=== PATIENT | female | born 1950 | race Hispanic/Latino ===

== ENCOUNTER → 2018-07-12 | Day surgery (SDC) | payer MEDICARE ==
[2018-07-05 09:26] LABS: BASOPHILS % 0.5 % (0.0-1.0); EOSINOPHILS # (AUTO) 0.3 (0.0-0.4); EOSINOPHILS % 4.4 % (0.0-6.0); HEMOGLOBIN 11.2 g/dL (12.0-16.0); LYMPHOCYTES # (AUTO) 1.5 (1.0-3.2); LYMPHOCYTES % 24.9 % (18.0-39.1); MEAN CORPUSCULAR HEMOGLOBIN 28.2 pg (28-32); MEAN CORPUSCULAR VOLUME 88.2 fL (81-99); MONOCYTES # (AUTO) 0.5 (0.2-0.8); MONOCYTES % 7.9 % (4.4-11.3); NEUTROPHILS # (AUTO) 3.7 (2.1-6.9); NEUTROPHILS % 62.1 % (38.7-80.0); PLATELET COUNT 279 x10e3/uL (140-360); RED BLOOD COUNT 3.97 x10e6/uL (3.6-5.1); RED CELL DISTRIBUTION WIDTH 13.4 % (11.7-14.4)
[2018-07-05 09:43] LABS: ANION GAP 13.2 mmol/L (8-16); CALCIUM 9.6 mg/dL (8.4-10.2); CREATININE, SERUM 1.17 mg/dL (0.57-1.11); POTASSIUM 4.2 mmol/L (3.5-5.1)
[2018-07-05 09:49] LABS: BILIRUBIN,URINE NEGATIVE (NEGATIVE); CLARITY,URINE CLEAR (CLEAR); COLOR,URINE YELLOW (YELLOW); KETONES,URINE NEGATIVE (NEGATIVE); LEUKOCYTE ESTERASE ,URINE TRACE (NEGATIVE); NITRITE,URINE NEGATIVE (NEGATIVE); PROTEIN,URINE DIPSTICK NEGATIVE (NEGATIVE); URINE UROBILINOGEN 0.2 mg/dL (0.2 - 1)
--- NOTE | 2018-07-05 10:24 | Diagnostic Imaging Report ---
PROCEDURE: X-RAY CHEST, TWO VIEWS COMPARISON: None. INDICATIONS: PREOPERATIVE CHEST XRAY FOR RIGHT FOOT SURGERY FINDINGS: LUNGS: No consolidations or edema. PLEURA: No effusions or pneumothorax. HEART & MEDIASTINUM: The heart is within normal size-limits. Large air-containing hiatal hernia. Tortuous thoracic aorta. BONES & SOFT TISSUES: No acute findings. Degenerative changes of the right shoulder and spine. Calcified lymph node in the right axilla. CONCLUSION: No acute thoracic abnormality. Scotty Vega D.O. Dictated by: Scotty Vega D.O. on 07/05/2018 at 10:34 Electronically approved by: Scotty Vega D.O. on 07/05/2018 at 10:34
[2018-07-05 10:26] LABS: INR 0.91; PROTHROMBIN TIME 13.1 seconds (11.9-14.5)
[2018-07-05 10:27] LABS: PARTIAL THROMBOPLASTIN TIME 30.9 seconds (23.8-35.5)
[~2018-07-12] MED LIST: ATORVASTATIN PO; BUPIVACAINE HCL 0.5% INJ 30 ML VIAL INJ ONE; CEFAZOLIN SOD 2 GM/D5W 50ML 50 ML IV ONE; DEXAMETHASONE SOD PHOS INJ 4 MG/ML VIAL ONE; EPHEDRINE SULFATE INJ 50 MG/10 ML SYR ONE; FENTANYL CITRATE/PF 100MCG/2 ML INJ ONE; KETOROLAC TROMETHAMINE 30 MG/ML VIAL ONE; LIDOCAINE HCL 1% LOCAL INJ 20 ML VIAL ONE; LISINOPRIL PO; ONDANSETRON HCL INJ 2 MG/ML VIAL ONE; PROPOFOL IV EMULSION 10 MG/ML 20 ML VIAL ONE; SEVOFLURANE INHAL SOLN 250 ML PEN BTL ONE
--- OUTSIDE RECORDS SUMMARY | 2018-07-12 11:53 | XMS REPORT ---
Author [facility] Address Unknown Phone Unavailable Care Team Providers Care Needle Bar Molder Name Role Phone Adarsh GOMEZ Unavailable Unavailable Problems This patient has no known problems. Allergies, Adverse Reactions, Alerts This patient has no known allergies or adverse reactions. Medications This patient has no known medications. Results Test Description Test Time Test Comments Text Results Atomic Results Result Comments CHEST 2 VIEWS 2018-07-05 10:34:00 [place] [address] Patient Name: KEERTHI RINCON MR #: [id number] : 1950 Age/Sex: 68/F Req #: [id number] Adm Physician: Ordered by: FARHAD GOMEZ DPM Report #: [id number] Location: OR Room/Bed: Procedure: [id number] DX/CHEST 2 VIEWS Exam Date: 07/05/18 Exam Time: 0920 REPORT STATUS: Signed PROCEDURE: X-RAY CHEST, TWO VIEWS COMPARISON: None. INDIC ATIONS: PREOPERATIVE CHEST XRAY FOR RIGHT FOOT SURGERY FINDINGS: LUNGS: No consolidations or edema. PLEURA: No effusions or pneumothorax. HEART MEDIASTINUM: The heart is within normal size- limits. Large air-containing hiatal hernia. Tortuous thoracic aorta. BONES SOFT TISSUES: No acute findings. Degenerative changes of the right shoulder and spine. Calcified lymph node in the right axilla. CONCLUSION: No acute thoracic abnormality. Jacinta Vega D.O. Dictated by: Jacinta Vega D.O. on 07/05/2018 at 10:34 E lectronically approved by: Jacinta Vega D.O. on 07/05/2018 at 10:34 Dictated By: JACINTA VEGA DO 1034 Transcribed By: RAYNA on 07/05/18 1034 COPY TO: FARHAD GOMEZ DPM
[2018-07-12 18:15] VITALS: BP 112/67
--- NOTE | 2018-07-12 18:59 | Diagnostic Imaging Report ---
RIGHT FOOT X-RAY - 3 VIEWS HISTORY: ^S/P SURGERY ^[id number] ^1805 ^PACU 3 COMPARISON: None available. FINDINGS: Bones: Surgical pin traversing the distal right second digit without loosening. There is good alignment. Osseous alignment is within normal limits. Joints: Advanced degenerative changes of the first metatarsophalangeal joint. Mild degenerative changes of the remaining interphalangeal joints. Soft tissues: Soft tissue swelling surrounding the foot. IMPRESSION: Interval repair of the second right digit. The surgical pin is intact without loosening. Signed by: Dr. Pratibha Mcknight M.D. on 07/12/2018 6:56 PM
--- NOTE | 2018-07-13 08:54 | Operative Report ---
DATE OF PROCEDURE: July 12, 2018 PREOPERATIVE DIAGNOSES 1. Hallux limitus/rigidities to the right first metatarsophalangeal joint. 2. Overlapping hammer toe, 2nd toe, right foot. 3. Contracture of the right 2nd toe, right foot at the metatarsophalangeal joint. 4. Hammer toe right 5th toe. POSTOPERATIVE DIAGNOSES 1. Hallux limitus/rigidities to the right first metatarsophalangeal joint. 2. Overlapping hammer toe, 2nd toe, right foot. 3. Contracture of the right 2nd toe, right foot at the metatarsophalangeal joint. 4. Hammer toe right 5th toe. PROCEDURES 1. Cheilectomy of the right first metatarsophalangeal joint. 2. Hammer toe correction of the 2nd toe, right foot with 0.045 K-wire stabilization (proximal interphalangeal joint resection arthroplasty of the 2nd toe, right foot with 0.045 K-wire stabilization). 3. Tenotomy and capsulotomy of the right 2nd metatarsophalangeal joint. 4. Hammer toe correction to the 5th toe of the right foot (a derotational proximal interphalangeal joint resection of the positive 5th toe of the right foot). HEAD SUGAR REPROCESS OPERATOR: None. ANESTHESIA: General with a total of 30 mL of 1:1 mix of 1% lidocaine plain and 0.5% of Marcaine plain. PATHOLOGY: None. ESTIMATED BLOOD LOSS: Less the 1 mL. COMPLICATIONS: None. GRAFTS OR IMPLANTS: One 0.045 K-wire. INDICATIONS FOR PROCEDURE: The patient is a 68-year-old female who complains of a painful bump on the dorsal aspect of the right 1st metatarsophalangeal joint. The patient denies any pain within the joint itself. She just complains of the bump that is proliferating over that joint. At this time again denies pain with movement of the toe, more in the joint itself, just a bump on the top. Also, has pain of the right 2nd toe, which is currently overlapping on the right great toe. It is causing her severe discomfort and pain, and has a contracture with a painful corn on the dorsal aspect of the 2nd toe as well. The patient also has a painful hammer toe of the right 5th toe as well. Both have been there for quite some time, and at this time this is creating severe pain with shoe gear and ambulation to the point where she is not able to walk comfortably. Therefore, this requires surgical correction of these problems including the cheilectomy and the hammer toe correction with K-wire stabilization at this time and capsulotomy of the 2nd toe, right foot, and a hammer toe correction of the 5th toe of the right foot. At this point, I explained to the patient that the procedure for the overlapping 2nd toe has a tendency to have a high recurrence as well as a recurrence of all of these options, and I had recommended an implant arthroplasty to the 1st MPJ, but she had indicated that she was not painful within the joint and just wanted the bump removed. I told her at some point it will become painful and will need something more aggressively done. The patient understood and at this time all the risks and complications were explained to the patient including infection, pain, swelling, numbness, bleeding, delayed healing, nonhealing, neuritis, recurrence of stiffness and possibly further surgery. At this time, there were no guarantees implied or given. Therefore, the above stated procedures were performed. NARRATIVE OF PROCEDURES: Preoperatively the patient was identified as Ángela Valdivia and the right foot was marked. At 30 minutes prior to the surgery, the patient was administered 2 grams of Ancef. She was then taken to the OR and placed on the OR table in a supine position. After a successful general anesthetic, a right ankle tourniquet was applied and an appropriate time out was performed with identification of the patient and the procedures. The right foot was infiltrated with a total of 30 mL of a 1:1 mix of 1% lidocaine plain and 0.5% of Marcaine plain. The right foot was then prepped and draped in the usual sterile manner. At this time, the mini C-arm was utilized to evaluate at this point. The right foot was now elevated and Esmarch was utilized to exsanguinate the blood and tourniquet was now inflated to 250 mmHg. Attention was now directed to the dorsal aspect of the right 1st metatarsophalangeal joint where there currently exists a very overlapping right 2nd toe over to the toe and a large dorsal bump on the dorsal right 1st metatarsophalangeal joint. A dorsal linear incision was made medially and parallel to the extensor hallucis longus tendon. Utilizing a #15 blade, the incision was now deepened down to the level of the subcutaneous tissue being careful to identify and retract all lateral neurovascular structures and to cauterize all vessels as needed. At this time, an inverted L capsulotomy was performed to the point where the head of the 1st metatarsal as well as to the base of the 1st metatarsal was then brought onto the operative field. There was a large vertiginous bone, both from the base of the proximal phalanx as well as to the head of the 1st metatarsal that is protruding, and at this point there was a loose fragment of bone also within the joint. After removing all the periosteal tissue from the bone with good exposures, the bone was apparent at this time, and utilizing a sagittal bone saw the prominent bone was now resected, and it was passed off the operative field. The medial eminence was resected as well on the head of the 1st metatarsal. At this point, there were large amounts of bony prominence into the base of the proximal phalanx, and which utilizing a Rongeur the bony prominence was resected, and this was also removed. The sagittal saw was utilized at this time to resect the prominent bone to nice flat bone area where the bony protrusion was noted. After resection of all the bone, the bones were now smoothed to smooth contour utilizing a reciprocating rasp as well as a bur and hand held rasp. The mini C-arm was utilized to evaluate at this time, and at this time the deformity that was noted previously was no longer present. The bony prominence was gone at this point, and, therefore, the deformity has been corrected. The area was then irrigated with copious amounts of normal saline, and after complete irrigation the capsule was then reapproximated utilizing 3-0 Vicryl in a simple interrupted stitch, and for deep closure 4-0 Vicryl was utilized in a simple interrupted stitch, and for skin closure 4-0 nylon was utilized in a simple interrupted stitch. Attention was now directed to the dorsal aspect of the right 2nd toe in which a dorsal linear incision encompassing the right 2nd toe at the metatarsophalangeal joint and a double semielliptical incision was made overlying the proximal phalangeal joint. Utilizing a #15 blade, the incision was now deepened down to the level of the subcutaneous tissue being careful to identify and retract all vital structures, and at this time deliverance of the skin overlapping proximal metatarsophalangeal joint was resected and passed off the operative field. A separate incision overlying the metatarsophalangeal joint was made. At this point, the incision was now deepened down to the lower subcutaneous tissue. The vessels were cauterized as needed. A transverse tenotomy capsulotomy was performed to the point where the toe now was sitting in a more rectus position, and the metatarsal head was elevated utilizing a McGlamry elevator. At this time, attention was now directed to the proximal phalangeal joint which the transverse tenotomy capsulotomy was performed over the proximal phalangeal joint to the point where the collateral ligaments were resected proximally and laterally. The extensor tendon was now reflected proximally, and the head of proximal phalanx was now apparent. Utilizing an oscillating bone saw, the head of the proximal phalanx was resected and was passed off the operative field. At this point, the bone was now smoothed to smooth contour with a bur. The mini C-arm was used to evaluate it at this time, and the contracture was no longer apparent and the toe was sitting in a much more rectus position. The area was then irrigated with copious amounts of normal saline. After complete irrigation, a 0.045 K-wire was placed through the middle phalanx extending it into the distal phalanx, and retrograding it back into the proximal phalanx and into the head of the 1st metatarsal. The mini C-arm was used to evaluate it at this time and the position of the K-wire was noted to be excellent. The K-wire is now bent and cut, and at this point the tendon was now reapproximated utilizing 4-0 Vicryl in a simple interrupted stitch, and for deep closure again 4-0 Vicryl was utilized in a simple interrupted stitch and for skin closure 4-0 nylon was used utilized in a simple interrupted stitch. Attention was now directed to the right 5th toe in which a double semielliptical incision was made encompassing the right 5th toe proximal phalangeal joint from distal to medial to proximal lateral direction. The incisions were now deepened down to the subcutaneous tissue being careful to identify and retract all vital neurovascular structures and to cauterize all vessels as needed. At this time, the ellipse of the skin was now removed, and it was passed off the operative field. A transverse tenotomy capsulotomy was performed to the point where the head of the proximal phalanx was aligned to the operating field, and at this time the extensor tendon was reflected both proximally. Utilizing an oscillating bone saw, the head of the proximal phalanx was resected, and the bone of the head was passed off the operative field. At this time, bone was smoothed to smooth contour. The mini C-arm was utilized to evaluate at this time and the resection was noted to be excellent at this point. The area was then irrigated with copious amounts of normal saline. After complete irrigation, the toe was now derotated and the tendon was then reapproximated utilizing 4-0 Vicryl in simple interrupted stitch. At this point, the tourniquet was released. Capillary refill was noted to all digits of 1 through 5 of the right foot, and then I proceeded with reapproximating the skin over the 5th toe with 4-0 nylon in a simple interrupted stitch. At this time, after achieving good capillary refill to all the digits, I then applied a dry, sterile compressive dressing utilizing Betadine-soaked Adaptic and gauze overlying the toes and the foot along with 4 x 4's, soft roll Miguel Angel, dry sterile Kerlix and an Wily bandage. Again, post removal of the tourniquet, capillary refill is noted to all digits 1-5 of the right foot. The patient did tolerate the procedure well, and left the OR to the recovery room with vital signs stable and neurovascular status back to preoperative condition. Job#: [id number] GH KORINA
== END | disposition home or self-care (01) ==
LOC: OR 11:51
PROVIDERS: ATTEND Podiatrist
DX: M20.21 Hallux rigidus, right foot (principal); M20.5X1 Other deformities of toe(s) (acquired), right foot; M20.41 Other hammer toe(s) (acquired), right foot; M24.574 Contracture, right foot; M24.074 Loose body in right toe joint(s); I10 Essential (primary) hypertension; E78.5 Hyperlipidemia, unspecified; Z01.810 Encounter for preprocedural cardiovascular examination; Z01.812 Encounter for preprocedural laboratory examination; Z01.818 Encounter for other preprocedural examination
CPT/HCPCS: 28270; 28285 ×2; 28289; 36415; 71046; 73630; 80048; 81003; 85025; 85610; 85730; 93005; J0690; J1100; J1885; J2001; J2405; J2704; C1713

== ENCOUNTER → 2019-03-07 | Day surgery (SDC) | payer MEDICARE ==
[2019-02-27 16:56] LABS: BILIRUBIN,URINE NEGATIVE (NEGATIVE); CLARITY,URINE CLEAR (CLEAR); COLOR,URINE YELLOW (YELLOW); KETONES,URINE NEGATIVE (NEGATIVE); LEUKOCYTE ESTERASE ,URINE SMALL (NEGATIVE); NITRITE,URINE NEGATIVE (NEGATIVE); PROTEIN,URINE DIPSTICK NEGATIVE (NEGATIVE); URINE UROBILINOGEN 0.2 mg/dL (0.2 - 1)
[2019-02-27 16:58] LABS: BASOPHILS % 0.3 % (0.0-1.0); EOSINOPHILS # (AUTO) 0.3 (0.0-0.4); EOSINOPHILS % 4.8 % (0.0-6.0); HEMATOCRIT 34.1 % (34.2-44.1); LYMPHOCYTES # (AUTO) 1.3 (1.0-3.2); LYMPHOCYTES % 21.4 % (18.0-39.1); MEAN CORPUSCULAR HEMOGLOBIN 28.2 pg (28-32); MEAN CORPUSCULAR HGB CONC 32.3 g/dL (31-35); MEAN CORPUSCULAR VOLUME 87.4 fL (81-99); MONOCYTES # (AUTO) 0.7 (0.2-0.8); MONOCYTES % 10.4 % (4.4-11.3); NEUTROPHILS # (AUTO) 3.9 (2.1-6.9); NEUTROPHILS % 62.9 % (38.7-80.0); PLATELET COUNT 317 x10e3/uL (140-360); RED CELL DISTRIBUTION WIDTH 22.3 % (11.7-14.4)
[2019-02-27 17:05] LABS: INR 0.91; PROTHROMBIN TIME 12.7 seconds (11.9-14.5)
[2019-02-27 17:06] LABS: PARTIAL THROMBOPLASTIN TIME 31.3 seconds (23.8-35.5)
[2019-02-27 17:10] LABS: ANION GAP 13.5 mmol/L (8-16); CALCIUM 9.4 mg/dL (8.4-10.2); CREATININE, SERUM 1.16 mg/dL (0.57-1.11); POTASSIUM 4.5 mmol/L (3.5-5.1)
--- NOTE | 2019-02-27 17:19 | Diagnostic Imaging Report ---
EXAMINATION: CHEST 2 VIEWS INDICATION: Pre-operative COMPARISON: None FINDINGS: LINES/TUBES:None LUNGS:The lungs are well-inflated. No focal consolidation or pulmonary edema. PLEURA:No pleural effusion or pneumothorax. MEDIASTINUM:The cardiomediastinal silhouette appears normal in size and shape. Right hemidiaphragmatic eventration. BONES/SOFT TISSUES:No acute osseous injury. Degenerative changes of the visualized spine. ABDOMEN:Large hiatal hernia with an air-fluid level. No free air under the diaphragm. IMPRESSION: No focal pneumonia or pulmonary edema. Large hiatal hernia. Signed by: Ernie Haro MD on 02/27/2019 5:16 PM
[2019-02-27 18:39] LABS: ANISOCYTOSIS MODERATE; PLATELET ESTIMATE ADEQUATE; PLATELET MORPHOLOGY COMMENT NORMAL; RBC MORPHOLOGY COMMENT NORMAL
[~2019-03-07] MED LIST changes: +ASPIRIN81 MG PO; +CEFAZOLIN SOD 1 GM/NS 50ML 100 ML IV ONE; -CEFAZOLIN SOD 2 GM/D5W 50ML 50 ML IV ONE; -EPHEDRINE SULFATE INJ 50 MG/10 ML SYR ONE; -KETOROLAC TROMETHAMINE 30 MG/ML VIAL ONE; +LIDOCAINE HCL 2% LOCAL INJ 5 ML SDV VIAL INJ ONE; +LISINOPRIL-HCT1 EACH PO; +MIDAZOLAM HCL 2 MG/2 ML VIAL ONE; -ONDANSETRON HCL INJ 2 MG/ML VIAL ONE; +ONDANSETRON HCL INJ 2MG/ML 2ML 2 MG/ML VIAL ONE
[2019-03-07 18:05] VITALS: BP 144/86
--- NOTE | 2019-03-07 18:24 | Diagnostic Imaging Report ---
FOOT LEFT AP LAT - 2 views HISTORY: Pain COMPARISON: 07/12/2018 FINDINGS: Bones: No acute displaced fracture. Osseous alignment is within normal limits. Unchanged pin fixation of the second digit through the phalanges and proximal second metatarsal. Plantar calcaneal enthesophyte. Joints: No malalignment. Degenerative changes of the first metatarsophalangeal joint. Soft tissues: Soft tissue swelling and emphysema of the dorsal forefoot. IMPRESSION: No acute osseous abnormality. Unchanged second toe fixating pin. Soft tissue swelling and emphysema of the dorsal forefoot, slightly increased from prior exam. Signed by: Dr. Ulises Miranda MD on 03/07/2019 6:21 PM
--- NOTE | 2019-03-08 01:22 | Operative Report ---
DATE OF PROCEDURE: 03/07/2019 SURGEON: Misti Bush DPM LOAN MANAGER: None. PREOPERATIVE DIAGNOSES: 1. Hallux limitus rigidus to left first metatarsophalangeal joint. 2. Overlapping hammertoe, second toe, left foot. 3. Contracture of the left second metatarsophalangeal joint. POSTOPERATIVE DIAGNOSES: 1. Hallux limitus rigidus to left first metatarsophalangeal joint. 2. Overlapping hammertoe, second toe, left foot. 3. Contracture of the left second metatarsophalangeal joint. PROCEDURES PERFORMED: 1. Cheilectomy of the left first metatarsophalangeal joint. 2. Hammertoe correction, second toe, left foot with 0.045 K-wire stabilization. 3. Tenotomy-capsulotomy of the left second metatarsophalangeal joint. FINDINGS: There was some diffuse bony osteophytes to the left first metatarsophalangeal joint. ANESTHESIA: General with a total 30 mL of 1:1 mix of 1% lidocaine plain and 0.5% Marcaine plain. PATHOLOGY: None. ESTIMATED BLOOD LOSS: None. COMPLICATIONS: None. IMPLANTS: 0.045 K-wire. INDICATIONS FOR PROCEDURE: The patient is a very pleasant 68-year-old female with a painful left first metatarsophalangeal joint as well as a painful left second toe, which is overlapping with contracture at the metatarsophalangeal joint and severe contracture of the proximal phalangeal joint. At this time, because of the severity of the pain and the patient had the pervious surgery done on the right foot, this warranted surgical intervention including a cheilectomy of the left first metatarsophalangeal joint along with a hammertoe correction of left second toe with tenotomy-capsulotomy with K- wire stabilization. Therefore, the above stated procedure was performed and also discussed with the patient and all the risks and complications of the surgery were explained to the patient including infection, pain, swelling, numbness, bleeding, delayed healing, non-healing, recurrence, neuritis, continued overlapping and possible need for further surgery. At this time, the patient was given opportunity to ask questions, and all questions were answered in informed manner and there were no guarantees implied or given at this point. NARRATIVE OF PROCEDURE: Preoperatively, the patient was identified as Ángela Valdivia and the left foot was marked. 30 minutes prior to the surgery, the patient was given 2 g of Ancef. She was then taken to the OR and placed on the OR table in a supine position. After a successful general anesthetic, an appropriate time-out was performed with identification of the patient and the procedure. The left ankle tourniquet was applied and the left foot was then blocked with a total of 36 mL of 1:1 mix of 1% lidocaine plain and 0.5% Marcaine plain. The left foot was then prepped and draped in usual sterile manner. The mini C- arm was utilized to take a picture at this time. The left foot was now elevated and Esmarch was utilized to exsanguinate the blood and tourniquet was now inflated to 250 mmHg. Attention was now directed toward the aspect of the left first metatarsophalangeal joint, in which a dorsal linear incision was made medial and parallel to the extensor hallucis longus tendon. Utilizing a 15-blade, the incision was now deepened down to the level of the subcutaneous tissue being careful to identify and retract all vital neurovascular structures and to cauterize all vessels as needed. At this time, a dorsal linear capsulotomy was made to the point where the head of the first metatarsal as well as the base of the proximal phalanx was brought into the operating field. There was some diffuse bony proliferation noted to the base of the proximal phalanx as well as the head of the first metatarsal. At this time, the capsular structure was resected both medially and laterally to allow for exposure of the joint. A McGlamry elevator was utilized at this point to free up the adhesions on the metatarsal and after this was performed, an oscillating bone saw was utilized to resect the prominent medial eminence as well as along with the dorsal eminence on the metatarsal head. At this point, the bony prominence at the base of the proximal phalanx was now resected with a rongeur throughout the entire area of the proximal phalanx. The reciprocating rasp was now utilized to smooth all the base of the proximal phalanx to entirety along with a bur and also with the head of the first metatarsal was now smoothed to a nice smooth contour. After assuring that the entire area was nice and smooth, the mini C-arm was utilized to evaluate and this time the deformity has been corrected and the toe was now gliding in a much more flowing position with no restrictions at this time. The area was then irrigated with copious amounts of normal saline and after complete irrigation, the capsule was then reapproximated utilizing a 4-0 Vicryl in a simple running stitch. For skin closure, 4-0 nylon was utilized in a simple interrupted stitch. Attention was now directed to the dorsal aspect of the left second toe, in which a double semi- elliptical incision was made overlying the proximal phalangeal joint ellipsing of the corner on dorsal proximal phalangeal joint region. A 15-blade was utilized and at this point, the skin was deepened down to the level of the skin to the point where the ellipse of the skin was now removed and this was passed off the operative field. At this point, a transverse tenotomy-capsulotomy was performed overlying the proximal phalangeal joint and the collateral ligaments were resected both medially and laterally and extensor tendon was reflected as well as proximally. The head of the proximal phalanx was now resected and it was passed off to operative field utilizing an oscillating bone saw. The bone stump was now smoothed to a smooth contour with a jean-paul. The mini C-arm was utilized at this point and the resection site was excellent at this time. The toe still appeared to be in a very contracted position at this point even with resection. Therefore, I made a dorsal linear incision overlying the metatarsophalangeal joint. Utilizing a 15-blade, the incision was now deepened down to the level of the subcutaneous tissue being careful to identify and retract all vital neurovascular structures and to cauterize all vessels as needed. At this time, a transverse-capsulotomy was performed, in which the capsule and tendon were transected and freed both medially and laterally. The McGlamry elevator was now utilized to elevate the head of the second metatarsal and freed the head of the second metatarsal at this point. Once this was performed, the toe was now sitting in a much more rectus position. The mini C-arm was utilized to evaluate at this time the deformity that was present previously appears to have been corrected and the toe sits in a much better position at this time. Therefore, I went on ahead and irrigated the wound with copious amounts of normal saline. Please note, the wound also was irrigated with copious amounts of normal saline to the left first metatarsophalangeal joint as well. After complete irrigation, I then proceeded with placing a 0.045 K-wire extending from the toe through the proximal phalanx and into the head of the second metatarsal. The mini C-arm was utilized at this time for placement of the K-wire, it is a 0.045 K-wire, it was placed in adequate position and at this time, the K-wire was bent and cut and the remaining K-wire was passed off the operative field. The wound was then irrigated again copious amounts of normal saline. Excess tendon was cut and now the tendon was reapproximated overlying the proximal phalangeal joint utilizing 4-0 Vicryl in a simple interrupted stitch and also 4-0 Vicryl simple in a simple interrupted stitch was utilized for the deep subcutaneous tissue and for skin closure, 4-0 nylon was utilized in a simple interrupted stitch. At this time, the mini C-arm was utilized to evaluate at this point and deformities that were present previously were no longer present. Therefore, a dry sterile compressive dressing was applied to the left foot. The tourniquet was released and at this time capillary refill time was noted to all digits to 1 through 5 of the left foot. The patient did tolerate the procedure well and left the OR to the recovery room with vital signs stable and neurovascular status back to preoperative condition. The patient will be placed in a pneumatic CAM and will be nonweightbearing and will follow up with me in my office on Tuesday. ELEUTERIO James/WILLOW /[id number] KORINA
== END | disposition home or self-care (01) ==
LOC: OR 11:13
PROVIDERS: ATTEND Podiatrist
DX: M20.22 Hallux rigidus, left foot (principal); M20.42 Other hammer toe(s) (acquired), left foot; M24.575 Contracture, left foot; M79.672 Pain in left foot; Z01.812 Encounter for preprocedural laboratory examination; Z01.811 Encounter for preprocedural respiratory examination; E11.22 Type 2 diabetes mellitus with diabetic chronic kidney disease; I12.9 Hypertensive chronic kidney disease with stage 1 through stage 4 chronic kidney disease, or unspecified chronic kidney disease; N18.9 Chronic kidney disease, unspecified; E78.5 Hyperlipidemia, unspecified
CPT/HCPCS: 28270; 28285; 28289; 36415; 71046; 73620; 80048; 81003; 85025; 85610; 85730; 93005; C1713; J0690; J1100; J2001 ×2; J2250; J2405; J2704; J3010